=== PATIENT | female | born 1955 | race Caucasian/White ===

== ENCOUNTER → 2017-11-01 | Outpatient (CLI) | payer OTHER ==
[~2017-11-01] MED LIST: ABL10 PO; BENZ-89 PO; CHOL1000 PO; DOCU100C31 PO; FURO-85 PO; LAMO100T16 PO; LEVO125T72 PO; LORA-741 PO; MCRK/20 PO; MRLP17 PO; NYST80OI TOP; OMEP20TA PO; PARO10TA PO; PARO40TA3 PO; SENN-61 PO; SIME1CAP37 PO; SIMV40TA2 PO; TRAZ50TA35 PO
== END ==
LOC: C.LABUPNIT 08:44
PROVIDERS: ATTEND Nurse Practitioner Family
DX: B17.10 Acute hepatitis C without hepatic coma (principal)